=== PATIENT | male | born 1940 | race Caucasian/White ===

== ENCOUNTER 2018-12-15 15:20 | Inpatient (IN) | payer OTHER, BC, MEDICAID ==
--- NOTE | 2018-12-15 15:16 | EDPHY ---
H & P Time Seen by Provider: 12/15/18 15:20 Constitutional: Initial Vital Signs Temperature (C) 36.7 C 12/15/18 15:25 Heart Rate 63 12/15/18 15:25 Respiratory Rate 16 12/15/18 15:25 Blood Pressure 122/72 H 12/15/18 15:25 O2 Sat (%) 97 12/15/18 15:25 O2 Delivery Mode Nasal Cannula O2 (L/minute) 3 Allergies/Adverse Reactions: No Known Allergies Allergy (Unverified 02/01/10 18:16) Home Medications: Medication Instructions Recorded Aspirin 81mg 02/01/10 Xanax 02/01/10 Zocor 02/01/10 Medical Decision Making - Diagnostics Imaging: I viewed and interpreted images myself ED Course/Re-evaluation: CHIEF COMPLAINT: Fall, right hip injury HISTORY OF PRESENT ILLNESS: The patient is a 78 y/o male with a history of dementia and a right hip replacement arriving via EMS from [facility] with right hip pain secondary to an unwitnessed fall this afternoon. Staff estimates he was not down on the ground for longer than 10 minutes. EMS arrived and found his right leg shortened and rotated. He screamed every time they moved him. No history obtainable from patient due to dementia. EMS did not note any other trauma on their exam. He received 100mcg IV Fentanyl en route. REVIEW OF SYSTEMS: Unobtainable due to dementia. PHYSICAL EXAM: HR, BP, O2 Sat, RR. Temp noted General Appearance: Alert, well hydrated, appropriate, and non-toxic appearing. Head: Atraumatic without scalp tenderness or obvious injury Eyes: Pupils equal, round, reactive to light and accommodation, EOMI, no trauma , no injection. Nose: Atraumatic, no rhinorrhea, clear. Throat: Mucus membranes moist. Neck: Supple. Respiratory: No retractions, no distress, no wheezes, and no accessory muscle use. Lungs are clear to auscultation bilaterally. Cardiovascular: Regular rate and rhythm, no murmurs, rubs, or gallops. Good capillary refill all extremities. Gastrointestinal: Abdomen is soft, nontender, non-distended, no masses, no rebound, no guarding, no peritoneal signs. Musculoskeletal: Right leg shortened and rotated, held in flexion, pain with any ROM. Otherwise normal active ROM of all extremities, atraumatic. Neurological: Alert, disoriented at baseline, and interactive. Nonfocal. Skin: No rashes, good turgor, no nodules on palpation. Past medical history: Dementia Past surgical history: Right hip replacement Family history: Noncontributory Social history: Lives at [facility]. DIAGNOSTICS/PROCEDURES/CRITICAL CARE TIME: Pelvis x-ray: Right periprosthetic hip fracture. DIFFERENTIAL DIAGNOSIS: The differential diagnosis for the patient's trauma included but was not limited to intracranial injury, long bone and pelvic bone fractures, spinal injury, intra-abdominal injury, and intra-thoracic injury. MEDICAL DECISION MAKING: This is a 78 y/o male with dementia who presents with right hip pain secondary to an unwitnessed fall this afternoon. His right leg is shortened and rotated and his hip is held in flexion. Any movement of this leg causes pain. Exam is otherwise atraumatic and he is neurovascularly intact. Concern for hip fracture vs. dislocation. Plan for pelvis x-ray and pain management as needed. 1622: I reviewed patient's pelvic x-ray which reveals a mac-prosthetic hip fracture. 1425: I consulted with the hospitalist service, Dr. Aburto accepts admission of this patient. I will consult with ortho regarding this patient. Pre-op labs ordered; 1L IV NS administered. 1649: I consulted with Dr. Hanna, orthopedic surgeon, regarding this patient and his imaging findings. Dr. Hanna agrees to consult on this patient during his admission. - Data Points Laboratory Results: Laboratory Results 12/15/18 15:45 12/15/18 12/15/18 12/15/18 15:45 15:45 15:45 WBC 8.39 10^3/uL 10^3/uL (3.80-9.50) RBC 4.92 10^6/uL 10^6/uL (4.40-6.38) Hgb 15.5 g/dL g/dL (13.7-17.5) Hct 47.2 % % (40.0-51.0) MCV 95.9 fL fL (81.5-99.8) MCH 31.5 pg pg (27.9-34.1) MCHC 32.8 g/dL g/dL (32.4-36.7) RDW 13.9 % % (11.5-15.2) Plt Count 201 10^3/uL 10^3/uL (150-400) MPV 10.0 fL fL (8.7-11.7) Neut % (Auto) 56.9 % % (39.3-74.2) Lymph % (Auto) 33.1 % % (15.0-45.0) [place] % (Auto) 6.4 % % (4.5-13.0) Eos % (Auto) 2.6 % % (0.6-7.6) Baso % (Auto) 0.8 % % (0.3-1.7) Nucleat RBC Rel Count 0.0 % % (0.0-0.2) Absolute Neuts (auto) 4.76 10^3/uL 10^3/uL (1.70-6.50) Absolute Lymphs (auto) 2.78 10^3/uL 10^3/uL (1.00-3.00) Absolute Monos (auto) 0.54 10^3/uL 10^3/uL (0.30-0.80) Absolute Eos (auto) 0.22 10^3/uL 10^3/uL (0.03-0.40) Absolute Basos (auto) 0.07 10^3/uL 10^3/uL (0.02-0.10) Absolute Nucleated RBC 0.00 10^3/uL 10^3/uL (0-0.01) Immature Gran % 0.2 % % (0.0-1.1) Immature Gran # 0.02 10^3/uL 10^3/uL (0.00-0.10) PT 14.6 SEC SEC (12.0-15.0) INR 1.12 (0.83-1.16) APTT 26.6 SEC SEC (23.0-38.0) Sodium Pending Potassium Pending Chloride Pending Carbon Dioxide Pending Anion Gap Pending BUN Pending Creatinine Pending Estimated GFR Pending Glucose Pending Calcium Pending Departure - Departure Disposition: [facility] Inpatient Acute Clinical Impression: Mac-prosthetic femoral shaft fracture Condition: Fair Report Scribed for: Niok Coreas Report Scribed by: Orly Multani Date of Report: 12/15/18 Time of Report: 15:27
[2018-12-15] MEDS ORDERED: NS 1,000 ML IV ONE (16:27)
[2018-12-15 16:34] LABS: PLATELET COUNT 201 10^3/uL (150-400)
[2018-12-15 16:43] LABS: INR 1.12 (0.83-1.16); PROTIME(PATIENT) 14.6 SEC (12.0-15.0)
[2018-12-15] MEDS ORDERED: ACETAMINOPHEN 325 MG TAB PO PRN (17:14)
[2018-12-15] MEDS ORDERED: oxyCODONE IR 5 MG TAB PO PRN (17:14)
[2018-12-15] MEDS ORDERED: ONDANSETRON 4 MG/2 ML VIAL IVP PRN (17:14)
[2018-12-15] MEDS ORDERED: PROMETHAZINE HCL 25 MG/ML INJ IVP PRN (17:14)
[2018-12-15] MEDS ORDERED: ONDANSETRON DISINTEGRATING 4 MG TAB PO PRN (17:14)
[2018-12-15] MEDS ORDERED: BISACODYL 10 MG SUPP PR PRN (17:18)
[2018-12-15] MEDS: HYDROmorphONE/DILAUDID 1 MG/ML INJ IVP PRN (18:18)
[2018-12-15] MEDS: NS 1,000 ML IV SCH (18:19)
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
[2018-12-15] MEDS: traZODone 50 MG TAB PO SCH (21:06)
[2018-12-15] MEDS: guaiFENesin 600 MG TAB.ER PO SCH (21:06)
--- NOTE | 2018-12-15 22:32 | GCON ---
[f rep st] CONSULTATION ORTHOPEDIC ER CONSULT CHIEF COMPLAINT: Right hip pain. DIAGNOSIS: Unstable periprosthetic right hip fracture. HISTORY OF PRESENT ILLNESS: The patient is a 78-year-old male with advanced dementia. Lives at [facility]. Former resident of [place], [place]. His family lives here in [place]. He had a right total hi p replacement, press-fit by Dr. Loyd Kimble about 8 years ago. He had a mechanical fall this mor shelby and was brought to the emergency room. His and daughters are at the bedside. His family r eports that he walks with a cane. He is fairly active. No significant heart or lung troubles. Please see details of ER H and P and admitting H and P. PHYSICAL EXAMINATION: PERTINENT ORTHOPEDIC: Reveals a short, externally rotated right lower extremi ty. He has intact tib ant, gastrocsoleus, EHL, FHL. Good sensation throughout his right foot. Left hip is nontender. ABDOMEN: Soft. BILATERAL UPPER EXTREMITIES: Without pain. DATA: X-rays of the right hip reveal an uncemented press-fit prosthesis total hip. The lesser troch anter is off, and there is some hinging of the lateral cortex. The fracture does extend almost to th e tip of the prosthesis. IMPRESSION/RECOMMENDATION: Likely unstable periprosthetic right hip fracture. I will discuss films and the case with our total joint surgeons in my practice. I did relay this information to the fernanda y. Plan for revision right total hip replacement and open reduction, internal fixation. /[id number]/MODL
[2018-12-16] MEDS: HYDROCODONE/APAP 5/325 TAB PO PRN ×2 (04:45→09:25)
[2018-12-16] MEDS: HYDROmorphONE/DILAUDID 1 MG/ML INJ IVP PRN ×3 (04:45→10:14)
[2018-12-16] MEDS: NS 1,000 ML IV SCH (04:46)
[2018-12-16 05:32] LABS: PLATELET COUNT 142 10^3/uL (150-400)
[2018-12-16] MEDS ORDERED: TRANEXAMIC ACID 1,000 MG in NS 100 ML IV ONE (08:02)
[2018-12-16] MEDS ORDERED: ceFAZolin 2 GM/DEXTROSE 100 ML IV ONE (08:02)
[2018-12-16] MEDS ORDERED: POVIDONE-IODINE 20 ML in SODIUM CL IRRIG SOLUTION 500 ML IRR ONE (08:02)
[2018-12-16] MEDS ORDERED: DEXAMETHASONE 4 MG/ML VIAL IVP ONE (08:02)
[2018-12-16] MEDS ORDERED: ROPIVACAINE 0.2% 80 MG, EPINEPHrine 0.2 MG, KETOROLAC TROMETHAMINE 30 MG in SYRINGE 0 ML IU ONE (08:02)
[2018-12-16] MEDS ORDERED: FAMOTIDINE 20 MG TAB PO ONE (08:02)
--- NOTE | 2018-12-16 08:30 | HOSPPROG ---
Hospitalist Progress Note Assessment/Plan: 78 yo M with PMH of advanced dementia and frequent falls presenting with an unwitnessed fall and periprosthetic hip fracture. First encounter, chart reviewed. * right acute periprosthetic hip fracture -OR today *frequent fall -EKG shows sinus rhythm *dementia -advanced, non verbal at baseline (except today he asked me what the plan was) -per family is calm and cooperative *hyperglycemia -stress induced *plan: continue NPO, OR today Subjective: Andrea told me he isn't having pain, knew he hurt his hip. Objective: Vital Signs Temp Pulse Resp BP Pulse Ox 36.9 C 76 16 104/61 96 12/15/18 23:49 12/15/18 23:49 12/15/18 23:49 12/15/18 23:49 12/15/18 23:49 Laboratory Results 12/16/18 04:20 12/16/18 04:20 12/15/18 12/16/18 12/17/18 05:59 05:59 05:59 Intake Total 1400 Balance 1400 PT 14.6 SEC (12.0-15.0) 12/15/18 15:45 INR 1.12 (0.83-1.16) 12/15/18 15:45 - Physical Exam Constitutional: no apparent distress, appears nourished Eyes: PERRL Ears, Nose, Mouth, Throat: hearing normal Cardiovascular: regular rate and rhythym, no murmur, rub, or gallop Respiratory: no respiratory distress Skin: warm Musculoskeletal: other (right leg shortened and ext rotated) Psychiatric: other (alert, answers some of my questions, calm) ICD10 Worksheet Patient Problems: Problems Problem Status Onset Jacqueline-prosthetic femoral shaft fracture Acute
[2018-12-16] MEDS ORDERED: CETIRIZINE 10 MG TAB PO PRN (09:00)
--- NOTE | 2018-12-16 09:20 | CPEKG ---
Test Reason : OPEN Blood Pressure : / mmHG Vent. Rate : 069 BPM Atrial Rate : 070 BPM P-R Int : 210 ms QRS Dur : 094 ms QT Int : 399 ms P-R-T Axes : 057 -28 031 degrees QTc Int : 428 ms Sinus rhythm Abnormal R-wave progression, early transition Confirmed by Aayush Platt ([id number]) on 12/16/2018 9:20:01 AM Referred By: Mireya Aburto Confirmed By:Aayush Platt
[2018-12-16] MEDS: guaiFENesin 600 MG TAB.ER PO SCH ×2 (09:25→21:10)
[2018-12-16] MEDS: ESCITALOPRAM OXALATE 10 MG TAB PO SCH (09:26)
--- NOTE | 2018-12-16 09:43 | PDMN ---
Medical Necessity Medical necessity: Pt meets IP criteria as of 12/15/2018 per MD and TATA PACK- ( Musculoskeletal Disease); est los > 2mn for ongoing tx and management of periprosthetic hip fracture s/p mechanical fall requiring surgical intervention.
[2018-12-16] MEDS ORDERED: LR 1,000 ML IV ONE (11:42)
[2018-12-16] MEDS ORDERED: DEXAMETHASONE 4 MG/ML VIAL ONE ×2 (11:46→13:46)
[2018-12-16] MEDS ORDERED: CEFAZOLIN 2 GM/DEXTROSE/100 ML BAG IV ONE (11:46)
[2018-12-16] MEDS ORDERED: FAMOTIDINE 20 MG TAB ONE (11:46)
[2018-12-16] MEDS ORDERED: ceFAZolin 1 GM/5 ML SYR ONE (11:57)
--- NOTE | 2018-12-16 12:17 | SOAPPROG ---
SOAP Progress Note Assessment/Plan: a/p 78 yo male with right hip periprosthetic fracture, scheduled for revision right total hip by dr. leonard and dr. Perkins for wednesday12/16/18 -npo from midnight -consider flexeril post op for spasms? -restrictions post op per Quynh/Maddie Subjective: family at bedside in pre op Andrea reports no issues over night, pain off/on, was better controlled since morning, denies cp/sob/f/c/n/v, denies numbness/tingling. ready for surgery Objective: RLE: no hip rom assessed, full ankle rom w/o pain, grossly nvid pt/dp2+ Vital Signs Temp Pulse Resp BP Pulse Ox 37 C 60 14 113/61 98 12/16/18 12:06 12/16/18 12:06 12/16/18 12:06 12/16/18 12:06 12/16/18 12:06 Laboratory Results 12/16/18 04:20 12/16/18 04:20 12/15/18 12/16/18 12/17/18 05:59 05:59 05:59 Intake Total 1400 Balance 1400 PT 14.6 SEC (12.0-15.0) 12/15/18 15:45 INR 1.12 (0.83-1.16) 12/15/18 15:45 - Pending Discharge Pending Discharge Within 24 Hours: No ICD10 Worksheet Patient Problems: Problems Problem Status Onset Jacqueline-prosthetic femoral shaft fracture Acute
[2018-12-16] MEDS ORDERED: fentaNYL 100 MCG/2 ML INJ ONE ×2 (12:21→12:54)
[2018-12-16] MEDS ORDERED: PROPOFOL 200 MG/20 ML VIAL ONE (12:21)
[2018-12-16] MEDS ORDERED: DEXMEDETOMIDINE HCL 400 MCG in NS 100 ML IV ONE (12:30)
[2018-12-16] MEDS ORDERED: BUPIVACAINE/EPI 0.5% 30 ML SDV ONE (12:31)
--- NOTE | 2018-12-16 12:31 | PDANEPAE ---
ANE Past Medical History - Cardiovascular History Hx Hypertension: No Hx Arrhythmias: No Hx Chest Pain: No Hx Coronary Artery / Peripheral Vascular Disease: No Hx CHF / Valvular Disease: No Hx Palpitations: No Cardiovascular History Comment: Abdominal aortic aneurysm, diagnosed a few years ago, no surgery offered due to dementia. Family does not know the size - Pulmonary History Hx COPD: No Hx Asthma/Reactive Airway Disease: No Hx Recent Upper Respiratory Infection: No Hx Oxygen in Use at Home: No Hx Sleep Apnea: Yes Sleep Apnea Screening Result - Last Documented: Positive - Neurologic History Hx Cerebrovascular Accident: No Hx Seizures: No Hx Dementia: Yes Neurologic History Comment: Severe dementia - Endocrine History Hx Diabetes: No - Renal History Hx Renal Disorders: No - Liver History Hx Hepatic Disorders: No - Chronic Pain History Chronic Pain: No ANE Review of Systems Review of systems is: negative Review of Systems: - Exercise capacity Exercise capacity: limited by disability, unable to assess ANE Patient History - Allergies Allergies/Adverse Reactions: No Known Allergies Allergy (Unverified 02/01/10 18:16) - Home Medications Home medications: home medication list seen and reviewed Home Medications: Acetaminophen [Tylenol 325mg (*)] 650 mg PO Q6HRS PRN 12/15/18 [Last Taken Unknown] Bisacodyl [Dulcolax] 10 mg [place] DAILY PRN 12/15/18 [Last Taken Unknown] Escitalopram Oxalate [Lexapro] 10 mg PO DAILY 12/15/18 [Last Taken Unknown] Herbals/Supplements -Info Only 1 ea PO DAILY 12/15/18 [Last Taken Unknown] Loperamide HCl [Imodium 2 mg (*)] 2 mg PO PRN PRN 12/15/18 [Last Taken Unknown] Loratadine [Claritin 10 mg] 10 mg PO DAILY PRN 12/15/18 [Last Taken Unknown] Sennosides 8.6 mg PO BID PRN 12/15/18 [Last Taken Unknown] Sennosides/Docusate Sodium [Senokot-S (OTC)] 1 each PO BID PRN 12/15/18 [Last Taken Unknown] guaiFENesin [Mucinex 600 MG (*)] 600 mg PO BID 12/15/18 [Last Taken Unknown] traZODone [traZODONE 50MG (*)] 50 mg PO HS 12/15/18 [Last Taken Unknown] - NPO status NPO Status: no food or drink >8 hours NPO Since - Liquids (Date): 12/15/18 NPO Since - Liquids (Time): 00:00 NPO Since - Solids (Date): 12/15/18 NPO Since - Solids (Time): 19:00 - Smoking Hx Smoking Status: Never smoked - Alcohol Use Alcohol Use: None ANE Labs/Vital Signs - Labs Result Diagrams: 12/16/18 04:20 12/16/18 04:20 - Vital Signs Vital Signs: reviewed preoperatively; see RN documention for details Blood Pressure: 113/61 Heart Rate: 60 Respiratory Rate: 14 O2 Sat (%): 98 Height: 185.42 cm Weight: 91.9 kg ANE Physical Exam - Airway Neck exam: decreased ROM Mallampati Score: Class 4 - Pulmonary Pulmonary: clear to auscultation - Cardiovascular Cardiovascular: regular rate and rhythym - ASA Status ASA Status: IV ANE Anesthesia Plan Anesthesia Plan: general endotracheal anesthesia (Discussed spinal with family and how it would be more advantageous for his dementia, but they were extremely concerned about his ability to cooperate, therefore preferred GA. Also the patient and family would like to keep his DNR status throughout the operation.)
--- NOTE | 2018-12-16 12:41 | ASMTCMCOM ---
CM Note CM Note Notes: Pt lives at the memory care unit at [facility]. He was admitted for a hip fracture after an unwitnessed fall. He is supported by his and dtr. Pt will go to OR today, therapy evals pending, RANDELL w/f. DC Plan: TBD Date Signed: 12/16/2018 12:41 PM Electronically Signed By:Francesca Taylor RN
[2018-12-16] MEDS ORDERED: HYDROmorphONE/DILAUDID 2 MG/ML INJ ONE (12:54)
[2018-12-16] MEDS ORDERED: ROCURONIUM 50 MG/5 ML VIAL ONE ×2 (13:39)
[2018-12-16] MEDS ORDERED: GLYCOPYRROLATE 0.2 MG/1 ML VIAL ONE (13:47)
[2018-12-16] MEDS ORDERED: *IRR*TRANEXAMIC ACID 3,000 MG/NS 50 ML IRR ONE (14:30)
[2018-12-16] MEDS ORDERED: PHENYLEPHRINE HCL 100 MCG/ML SYR ONE (14:34)
[2018-12-16] MEDS ORDERED: ePHEDrine SULFATE 25 MG/5 ML SYR ONE (14:34)
[2018-12-16] MEDS ORDERED: PHENYLEPHRINE 10 MG/ML SDV ONE (14:35)
[2018-12-16] MEDS ORDERED: LACTULOSE 20 GM/30 ML UDCUP PO PRN (17:20)
[2018-12-16] MEDS ORDERED: DIPHENOXYLATE/ATROPINE LOMOTIL 1 TAB PO PRN (17:20)
[2018-12-16] MEDS ORDERED: POLYETHYLENE GLYCOL 3350 17 GM PKT PO PRN (17:20)
[2018-12-16] MEDS ORDERED: CYCLOBENZAPRINE 10 MG TAB PO PRN (17:20)
[2018-12-16] MEDS ORDERED: MAGNESIUM HYDROXIDE 30 ML UDCUP PO PRN (17:20)
[2018-12-16] MEDS ORDERED: ONDANSETRON 4 MG/2 ML VIAL ONE (17:20)
[2018-12-16] MEDS ORDERED: TEMAZEPAM 15 MG CAP PO PRN (17:20)
--- NOTE | 2018-12-16 17:33 | POSTOPPROG ---
Post Op Note Date of Operation: 12/16/18 Surgeon: Franky Beauchamp Qa Reviewer: Co-Surgeon MD Maddie, Qa Reviewer Cheli CAMILO Anesthesiologist: Noni SAMPSON Anesthesia: GET(General Endotracheal) Pre-op Diagnosis: L hip periprosthetic fracture Post-op Diagnosis: same - Nathalie B2 Procedure: L hip ORIF and revision BERT Inf/Abcess present in the surg proc area at time of surgery?: No EBL: 500-1000 (1000)
[2018-12-16] MEDS ORDERED: PHENYLEPHRINE HCL 100 MCG/ML SYR IVP PRN (18:05)
[2018-12-16] MEDS ORDERED: ALBUTEROL 3 ML DEYVIAL IH PRN (18:05)
[2018-12-16] MEDS ORDERED: DEXAMETHASONE 4 MG/ML VIAL IVP PRN (18:05)
[2018-12-16] MEDS ORDERED: PROMETHAZINE HCL 25 MG/ML INJ IVP PRN (18:05)
[2018-12-16] MEDS ORDERED: LR 500 ML IV PRN (18:05)
[2018-12-16] MEDS ORDERED: ONDANSETRON 4 MG/2 ML VIAL IVP PRN (18:05)
[2018-12-16] MEDS ORDERED: fentaNYL 100 MCG/2 ML INJ IVP PRN (18:05)
[2018-12-16] MEDS ORDERED: MEPERIDINE 25 MG/0.5 ML AMP IVP PRN (18:05)
[2018-12-16] MEDS ORDERED: oxyCODONE IR 5 MG TAB PO PRN (18:05)
[2018-12-16] MEDS ORDERED: NALOXONE HCL 0.4 MG/ML INJ IVP PRN (18:05)
[2018-12-16] MEDS: LR 1,000 ML IV SCH ×2 (19:44→19:47)
[2018-12-16] MEDS: ceFAZolin 2 GM/DEXTROSE 100 ML IV SCH (21:10)
[2018-12-16] MEDS: traZODone 50 MG TAB PO SCH (21:10)
[2018-12-16] MEDS: FAMOTIDINE 20 MG TAB PO SCH (21:10)
[2018-12-17] MEDS: HYDROCODONE/APAP 5/325 TAB PO PRN ×3 (02:04→11:02)
[2018-12-17] MEDS: ceFAZolin 2 GM/DEXTROSE 100 ML IV SCH (04:49)
--- NOTE | 2018-12-17 07:52 | POSTANESTH ---
Post Anesthetic Evaluation Cardiovascular Status: Normal, Stable (HCT 28 post op) Respiratory Status: Normal, Stable, Tx Decrease in SpO2 (mild decrease SaO2 secondary to long surgical case) Level of Consciousness/Mental Status: Mildly Sleepy, Arousable (demetia stable, but non-verbal) Pain Control: Adequate, Prn Tx Ordered Nausea/Vomiting Control: Adequate, Prn Tx Ordered Complications Possibly Related to Anesthesia: None Noted
--- NOTE | 2018-12-17 09:00 | HOSPPROG ---
Hospitalist Progress Note Assessment/Plan: 78 yo M with PMH of advanced dementia and frequent falls presenting with an unwitnessed fall and periprosthetic hip fracture. * right acute periprosthetic hip fracture -s/p ORIF and revision *anemia -acute blood loss from the above *leukocytosis -stress induced *frequent fall -EKG shows sinus rhythm *dementia -advanced, -per family is calm and cooperative *hyperglycemia -stress induced *plan: continue care as above, will place him on scheduled tylenol since his dementia is bad enough that he won't know to ask for medications. Subjective: Andrea is in the chair, smiling, says he has no pain, until I touch his hip. Objective: Vital Signs Temp Pulse Resp BP Pulse Ox 36.8 C 69 14 109/53 L 93 12/17/18 07:31 12/17/18 07:31 12/17/18 07:31 12/17/18 07:31 12/17/18 07:31 Laboratory Results 12/16/18 22:56 12/17/18 06:46 12/16/18 12/17/18 12/18/18 05:59 05:59 05:59 Intake Total 1400 7440 Output Total 2250 Balance 1400 5190 PT 14.6 SEC (12.0-15.0) 12/15/18 15:45 INR 1.12 (0.83-1.16) 12/15/18 15:45 - Physical Exam Constitutional: appears nourished, uncomfortable Eyes: PERRL Ears, Nose, Mouth, Throat: hearing normal Cardiovascular: regular rate and rhythym Respiratory: no respiratory distress Skin: warm, other (swelling in his r hip, r upper thigh area), No normal color ( pale) Musculoskeletal: generalized weakness Psychiatric: interacting appropriately, flat affect, poor insight, poor judgement, poor memory ICD10 Worksheet Patient Problems: Problems Problem Status Onset Jacqueline-prosthetic femoral shaft fracture Acute
[2018-12-17] MEDS: ENOXAPARIN 40 MG/0.4 ML SYR SC SCH (09:44)
[2018-12-17] MEDS: guaiFENesin 600 MG TAB.ER PO SCH ×2 (09:44→21:18)
[2018-12-17] MEDS: FAMOTIDINE 20 MG TAB PO SCH ×2 (09:45→21:19)
[2018-12-17] MEDS: ESCITALOPRAM OXALATE 10 MG TAB PO SCH (09:45)
[2018-12-17] MEDS: SENNOSIDES 1 TAB PO PRN (11:04)
[2018-12-17] MEDS ORDERED: NS 250 ML IV ONE (11:30)
--- NOTE | 2018-12-17 14:20 | ASMTCMCOM ---
CM Note CM Note Notes: Reviewed chart, spoke with Merary Taylor NP regarding discharge plan of care, pt's progress. Per Merary, pt will require SNF rehab upon discharge. Call placed to [facility] (); spoke with Matthew, update provided. Per Matthew, will run insurance benefits to begin authorization process. Therapy evals and progress notes faxed via [employer]; confirmed receipt with Matthew. will continue to follow. Discharge Plan: [facility] Date Signed: 12/17/2018 02:20 PM Electronically Signed By:Abiola Srinivasan RN
[2018-12-17] MEDS: ACETAMINOPHEN 500 MG TAB PO SCH ×2 (15:00→21:19)
--- NOTE | 2018-12-17 15:56 | SOAPPROG ---
SOAP Progress Note Assessment/Plan: Assessment: Postop day 1 status post right femur open reduction internal fixation and revision total hip arthroplasty Plan: 50% weight-bearing with assistance, PT/OT Posterior hip precautions Acute blood-loss anemia with vasovagal episode today - good response to repositioning and IV fluids. Will continue to trend CBC and transfuse accordingly Current pain management regimen seems to be working well. DVT prophylaxis: SCDs, Mohan hospaco, Lovenox 40 mg daily Disposition: Pending 12/17/18 15:52 Subjective: Patient is awake and verbal. Confused - he thought I was his son. In no acute distress. Objective: Vital Signs Temp Pulse Resp BP Pulse Ox 36.6 C 69 14 112/59 L 98 12/17/18 12:00 12/17/18 12:00 12/17/18 12:00 12/17/18 12:00 12/17/18 12:00 Laboratory Results 12/17/18 12:32 12/17/18 06:46 12/16/18 12/17/18 12/18/18 05:59 05:59 05:59 Intake Total 1400 7440 Output Total 2250 Balance 1400 5190 PT 14.6 SEC (12.0-15.0) 12/15/18 15:45 INR 1.12 (0.83-1.16) 12/15/18 15:45 Awake alert, not oriented to place or time which is baseline Easy nonlabored breathing Right thigh: Generalized edema throughout the right lower extremity Dressing clean dry intact no erythema drainage or signs of infection No significant ecchymosis Thigh and calf compartments soft compressible No calf pain Motor intact to EHL FHL tibialis anterior gastrocsoleus Palpable DP PT pulses - Time Spent With Patient Time Spent With Patient: 10 ICD10 Worksheet Patient Problems: Problems Problem Status Onset Jacqueline-prosthetic femoral shaft fracture Acute
[2018-12-17] MEDS: oxyCODONE IR 5 MG TAB PO PRN (16:06)
[2018-12-17] MEDS: traZODone 50 MG TAB PO SCH (21:19)
[2018-12-18] MEDS: ACETAMINOPHEN 500 MG TAB PO SCH ×3 (06:28→22:17)
[2018-12-18] MEDS: oxyCODONE IR 5 MG TAB PO PRN ×3 (08:23→20:46)
[2018-12-18] MEDS: FAMOTIDINE 20 MG TAB PO SCH ×2 (09:32→20:45)
[2018-12-18] MEDS: guaiFENesin 600 MG TAB.ER PO SCH ×2 (09:32→20:46)
[2018-12-18] MEDS: ENOXAPARIN 40 MG/0.4 ML SYR SC SCH (09:32)
[2018-12-18] MEDS: ESCITALOPRAM OXALATE 10 MG TAB PO SCH (09:32)
--- NOTE | 2018-12-18 11:19 | HOSPPROG ---
Hospitalist Progress Note Assessment/Plan: 78 yo M with PMH of advanced dementia and frequent falls presenting with an unwitnessed fall and periprosthetic hip fracture. * right acute periprosthetic hip fracture -s/p ORIF and revision -on scheduled Tylenol for pain *anemia -acute blood loss from the above -hgb and hct pending *vasovagal event w hypotension -occurred yesterday/ none further *leukocytosis -stress induced *frequent fall -EKG shows sinus rhythm *dementia -advance -per family is calm and cooperative *hyperglycemia -stress induced *plan: f/u with hgb and hct. Likely to dc tomorrow. Subjective: Andrea is not c/o pain, wants to go back to bed Objective: Vital Signs Temp Pulse Resp BP Pulse Ox 36.1 C 75 14 105/54 L 90 L 12/18/18 08:00 12/18/18 08:00 12/18/18 08:00 12/18/18 08:00 12/18/18 08:00 Laboratory Results 12/17/18 12:32 12/17/18 06:46 12/17/18 12/18/18 12/19/18 05:59 05:59 05:59 Intake Total 7440 750 Output Total 2250 Balance 5190 750 PT 14.6 SEC (12.0-15.0) 12/15/18 15:45 INR 1.12 (0.83-1.16) 12/15/18 15:45 - Physical Exam Constitutional: no apparent distress, appears nourished, uncomfortable Eyes: PERRL Ears, Nose, Mouth, Throat: hearing normal Cardiovascular: regular rate and rhythym Respiratory: no respiratory distress Skin: warm, other (right hip, thigh w swelling) Musculoskeletal: generalized weakness Psychiatric: poor insight, poor judgement, poor memory, other (alert and oriented to himself only) ICD10 Worksheet Patient Problems: Problems Problem Status Onset Jacqueline-prosthetic femoral shaft fracture Acute
[2018-12-18] MEDS ORDERED: ACETAMINOPHEN 325 MG TAB PO ONE (13:42)
[2018-12-18] MEDS: traZODone 50 MG TAB PO SCH (20:46)
[2018-12-18] MEDS: SENNOSIDES 1 TAB PO PRN (20:46)
[2018-12-19] MEDS: ACETAMINOPHEN 500 MG TAB PO SCH ×3 (06:16→22:00)
[2018-12-19] MEDS: oxyCODONE IR 5 MG TAB PO PRN (10:07)
--- NOTE | 2018-12-19 10:09 | SOAPPROG ---
SOAP Progress Note Assessment/Plan: Assessment: Postop day 3 status post right femur open reduction internal fixation and revision total hip arthroplasty Plan: 50% weight-bearing with assistance, PT/OT Posterior hip precautions Acute blood-loss anemia with vasovagal episode today - good response to repositioning and IV fluids. Received 1 unit of packed red blood cells yesterday evening. H&H still down this morning. Recommend additional unit of transfusion. Will continue to trend CBC and transfuse accordingly Current pain management regimen seems to be working well. DVT prophylaxis: SCDs, Mohan mills, Lovenox 40 mg daily Analgesia: Patient having difficulty with pain management morning. Possible his mental status does not allow him to effectively convey when he is beginning to have pain. Consider scheduled p.o. Narcotics Disposition: Pending 12/17/18 15:52 12/19/18 10:07 Subjective: No acute events. Patient in moderate pain this morning. Objective: Vital Signs Temp Pulse Resp BP Pulse Ox 37.3 C 83 18 136/73 H 94 12/19/18 07:25 12/19/18 07:25 12/19/18 07:25 12/19/18 07:25 12/19/18 07:25 Laboratory Results 12/19/18 04:12 12/18/18 11:45 12/18/18 12/19/18 12/20/18 05:59 05:59 05:59 Intake Total 750 750 500 Balance 750 750 500 PT 14.6 SEC (12.0-15.0) 12/15/18 15:45 INR 1.12 (0.83-1.16) 12/15/18 15:45 Awake alert, not oriented to place or time which is baseline Easy nonlabored breathing Right thigh: Generalized edema throughout the right lower extremity Dressing clean dry intact no erythema drainage or signs of infection No significant ecchymosis Thigh and calf compartments soft compressible No calf pain Motor intact to EHL FHL tibialis anterior gastrocsoleus Palpable DP PT pulses ICD10 Worksheet Patient Problems: Problems Problem Status Onset Jacqueline-prosthetic femoral shaft fracture Acute
[2018-12-19] MEDS: guaiFENesin 600 MG TAB.ER PO SCH ×2 (10:15→22:00)
[2018-12-19] MEDS: FAMOTIDINE 20 MG TAB PO SCH ×2 (10:15→22:00)
[2018-12-19] MEDS: ESCITALOPRAM OXALATE 10 MG TAB PO SCH (10:15)
[2018-12-19] MEDS: ENOXAPARIN 40 MG/0.4 ML SYR SC SCH (10:16)
[2018-12-19] MEDS ORDERED: oxyCODONE IR 5 MG TAB PO PRN (10:37)
[2018-12-19] MEDS ORDERED: oxyCODONE IR 5 MG TAB PO SCH (12:00)
[2018-12-19] MEDS: oxyCODONE IR 5 MG TAB PO SCH ×3 (12:55→23:39)
--- NOTE | 2018-12-19 15:22 | ASMTCMCOM ---
CM Note CM Note Notes: Pt has original/standard Medicare so no insurance auth is needed for pt to return to [facility] with SNF benefit. Pt PASRR completed, non-triggering. Pt dghtr/MDPOA was able to assist with answering the PASRR medication question. D/c plan of care: [facility] Date Signed: 12/19/2018 03:21 PM Electronically Signed By:FAHAD Cool
--- NOTE | 2018-12-19 15:24 | HOSPPROG ---
Hospitalist Progress Note Assessment/Plan: 78 yo M with PMH of advanced dementia and frequent falls presenting with an unwitnessed fall and periprosthetic hip fracture. First encounter, chart reviewed. * right acute periprosthetic hip fracture -s/p ORIF and revision POD #3 -on scheduled Tylenol for pain *Pain -severe -will schedule pain meds -spasm *anemia -acute blood loss from the above -hgb and hct low -transfuse -no active signs of bleeding *vasovagal event w hypotension -none further *leukocytosis -stress induced *frequent fall -EKG shows sinus rhythm *dementia -advance -per family is calm and cooperative *hyperglycemia -stress induced *plan: f/u with hgb and hct. transfuse change pain meds will need SNF Subjective: C/O pain. Confused. Objective: Vital Signs Temp Pulse Resp BP Pulse Ox 37.3 C 88 18 108/53 L 90 L 12/19/18 11:45 12/19/18 11:45 12/19/18 11:45 12/19/18 11:45 12/19/18 11:45 Laboratory Results 12/19/18 04:12 12/18/18 11:45 12/18/18 12/19/18 12/20/18 05:59 05:59 05:59 Intake Total 750 750 500 Output Total 1 Balance 750 750 499 PT 14.6 SEC (12.0-15.0) 12/15/18 15:45 INR 1.12 (0.83-1.16) 12/15/18 15:45 - Physical Exam Constitutional: appears nourished, chronically ill appearing, uncomfortable Eyes: PERRL, anicteric sclera, EOMI Ears, Nose, Mouth, Throat: moist mucous membranes, hearing normal, ears appear normal Cardiovascular: edema, No JVD, No tachycardia Respiratory: no respiratory distress, no rales or rhonchi, reduced air movement Gastrointestinal: normoactive bowel sounds, No tenderness, No ascites Skin: warm, normal color, No mottled Musculoskeletal: joint tenderness, pain with ROM, generalized weakness Neurologic: No AAOx3 Psychiatric: not anxious, poor insight, poor judgement, poor memory ICD10 Worksheet Patient Problems: Problems Problem Status Onset Jacqueline-prosthetic femoral shaft fracture Acute
[2018-12-19] MEDS: METHOCARBAMOL 750 MG TAB PO SCH ×2 (16:51→22:00)
[2018-12-19] MEDS: traZODone 50 MG TAB PO SCH (22:01)
[2018-12-20] MEDS: ACETAMINOPHEN 500 MG TAB PO SCH ×3 (06:07→23:52)
[2018-12-20] MEDS: oxyCODONE IR 5 MG TAB PO SCH ×4 (06:10→23:51)
--- NOTE | 2018-12-20 07:42 | SOAPPROG ---
SOAP Progress Note Assessment/Plan: Assessment: Postop day 4 status post right femur open reduction internal fixation and revision total hip arthroplasty Plan: 50% weight-bearing with assistance, PT/OT Posterior hip precautions Acute blood-loss anemia with 1 episode of vasovagal episode. Has Received 2 units of packed red blood cells with appropriate H&H response this morning. DVT prophylaxis: SCDs, Mohan hose, Lovenox 40 mg daily Analgesia: Patient having difficulty with pain management morning. Possible his mental status does not allow him to effectively convey when he is beginning to have pain. Consider scheduled p.o. Narcotics Disposition: Pending 12/17/18 15:52 12/19/18 10:07 12/20/18 07:40 Subjective: No acute events. sleeping comfortably. Easily arousable. Baseline dementia and confusion Objective: Vital Signs Temp Pulse Resp BP Pulse Ox 36.5 C 61 17 121/69 H 98 12/20/18 04:00 12/20/18 04:00 12/20/18 04:00 12/20/18 04:00 12/20/18 04:00 Laboratory Results 12/20/18 04:22 12/18/18 11:45 12/19/18 12/20/18 12/21/18 05:59 05:59 05:59 Intake Total 750 1440 500 Output Total 401 450 Balance 750 1039 50 PT 14.6 SEC (12.0-15.0) 12/15/18 15:45 INR 1.12 (0.83-1.16) 12/15/18 15:45 Awake alert, not oriented to place or time which is baseline Easy nonlabored breathing Right thigh: Generalized edema throughout the right lower extremity Dressing clean dry intact no erythema drainage or signs of infection No significant ecchymosis Thigh and calf compartments soft compressible No calf pain Motor intact to EHL FHL tibialis anterior gastrocsoleus Palpable DP PT pulses ICD10 Worksheet Patient Problems: Problems Problem Status Onset Jacqueline-prosthetic femoral shaft fracture Acute
[2018-12-20] MEDS: FAMOTIDINE 20 MG TAB PO SCH ×2 (09:38→20:37)
[2018-12-20] MEDS: guaiFENesin 600 MG TAB.ER PO SCH ×2 (09:38→20:37)
[2018-12-20] MEDS: ESCITALOPRAM OXALATE 10 MG TAB PO SCH (09:38)
[2018-12-20] MEDS: METHOCARBAMOL 750 MG TAB PO SCH ×3 (09:39→20:37)
[2018-12-20] MEDS: ENOXAPARIN 40 MG/0.4 ML SYR SC SCH (09:39)
--- NOTE | 2018-12-20 13:49 | HOSPPROG ---
Hospitalist Progress Note Assessment/Plan: 78 yo M with PMH of advanced dementia and frequent falls presenting with an unwitnessed fall and periprosthetic hip fracture. * right acute periprosthetic hip fracture -s/p ORIF and revision POD #4 -on scheduled oxy for pain *Pain -better today on scheduled meds -spasm *anemia -acute blood loss from the above -hgb and hct stable -transfused yesterday -no active signs of bleeding -recheck in m *vasovagal event w hypotension -none further *leukocytosis -stress induced *frequent fall -EKG shows sinus rhythm *dementia -advance -per family is calm and cooperative *hyperglycemia -stress induced *plan: f/u with hgb and hct. continue scheduled pain meds will need SNF Subjective: Up in the chair. Feeling better today. Pain controlled. Objective: Vital Signs Temp Pulse Resp BP Pulse Ox 36.2 C 64 14 119/62 98 12/20/18 07:58 12/20/18 07:58 12/20/18 07:58 12/20/18 07:58 12/20/18 07:58 Laboratory Results 12/20/18 04:22 12/18/18 11:45 12/19/18 12/20/18 12/21/18 05:59 05:59 05:59 Intake Total 750 1440 900 Output Total 401 450 Balance 750 1039 450 PT 14.6 SEC (12.0-15.0) 12/15/18 15:45 INR 1.12 (0.83-1.16) 12/15/18 15:45 - Physical Exam Constitutional: appears nourished, chronically ill appearing Eyes: PERRL, anicteric sclera Ears, Nose, Mouth, Throat: moist mucous membranes, hearing normal Cardiovascular: No JVD, No edema Respiratory: no respiratory distress, reduced air movement Gastrointestinal: No tenderness, No ascites Skin: warm, normal color, No mottled Musculoskeletal: joint tenderness, pain with ROM, generalized weakness Neurologic: No AAOx3 Psychiatric: not anxious, poor insight, poor judgement, poor memory ICD10 Worksheet Patient Problems: Problems Problem Status Onset Jacqueline-prosthetic femoral shaft fracture Acute
[2018-12-20] MEDS: traZODone 50 MG TAB PO SCH (20:37)
[2018-12-21] MEDS: ACETAMINOPHEN 500 MG TAB PO SCH (06:21)
[2018-12-21] MEDS: oxyCODONE IR 5 MG TAB PO SCH ×2 (06:24→13:04)
--- NOTE | 2018-12-21 07:00 | SOAPPROG ---
SOAP Progress Note Assessment/Plan: Assessment: Postop day 5 status post right femur open reduction internal fixation and revision total hip arthroplasty Plan: 50% weight-bearing with assistance, PT/OT Posterior hip precautions Acute blood-loss anemia with 1 episode of vasovagal episode. Has Received 2 units of packed red blood cells with appropriate H&H response. 9.4 this AM DVT prophylaxis: SCDs, Mohan hose, Lovenox 40 mg daily x 3-4wks depending on mobility Analgesia: comfortable this AM. On scheduled oxy Disposition: to [facility] today if stable and cleared by hospitalist service 12/17/18 15:52 12/19/18 10:07 12/20/18 07:40 12/21/18 06:58 Subjective: No acute events overnight. Pain well controlled this morning. Objective: Vital Signs Temp Pulse Resp BP Pulse Ox 36.5 C 63 18 125/74 H 97 12/20/18 23:19 12/20/18 23:19 12/20/18 23:19 12/20/18 23:19 12/20/18 23:19 Laboratory Results 12/21/18 04:19 12/18/18 11:45 12/20/18 12/21/18 12/22/18 05:59 05:59 05:59 Intake Total 1440 1500 Output Total 401 1400 Balance 1039 100 PT 14.6 SEC (12.0-15.0) 12/15/18 15:45 INR 1.12 (0.83-1.16) 12/15/18 15:45 Awake alert, not oriented to place or time which is baseline Easy nonlabored breathing Right thigh: Generalized edema throughout the right lower extremity Dressing clean dry intact no erythema drainage or signs of infection No significant ecchymosis Thigh and calf compartments soft compressible No calf pain Motor intact to EHL FHL tibialis anterior gastrocsoleus Palpable DP PT pulses ICD10 Worksheet Patient Problems: Problems Problem Status Onset Jacqueline-prosthetic femoral shaft fracture Acute
[2018-12-21 07:48] VITALS: BP 129/79
--- NOTE | 2018-12-21 09:41 | HOSPPROG ---
Hospitalist Progress Note Assessment/Plan: 78 yo M with PMH of advanced dementia and frequent falls presenting with an unwitnessed fall and periprosthetic hip fracture. * right acute periprosthetic hip fracture -s/p ORIF and revision -on scheduled Tylenol for pain and oxy *anemia -acute blood loss from the above -recieved two units of PRBC's *vasovagal event w hypotension -occurred yesterday/ none further *leukocytosis -stress induced *frequent fall -EKG shows sinus rhythm *dementia -advance -per family is calm and cooperative *hyperglycemia -stress induced *plan:dc to rehab Subjective: Andrea has no complaints. Objective: Vital Signs Temp Pulse Resp BP Pulse Ox 36.6 C 67 18 129/79 H 98 12/21/18 07:45 12/21/18 07:45 12/21/18 07:45 12/21/18 07:45 12/21/18 07:45 Laboratory Results 12/21/18 04:19 12/18/18 11:45 12/20/18 12/21/18 12/22/18 05:59 05:59 05:59 Intake Total 1440 1500 Output Total 401 1400 Balance 1039 100 PT 14.6 SEC (12.0-15.0) 12/15/18 15:45 INR 1.12 (0.83-1.16) 12/15/18 15:45 - Physical Exam Constitutional: no apparent distress, appears nourished, uncomfortable Eyes: PERRL Ears, Nose, Mouth, Throat: hearing normal Cardiovascular: regular rate and rhythym Respiratory: no respiratory distress, reduced air movement Skin: warm, other (r hip area w swelling) Musculoskeletal: generalized weakness Neurologic: other (alert and oriented to himself) Psychiatric: interacting appropriately ICD10 Worksheet Patient Problems: Problems Problem Status Onset Jacqueline-prosthetic femoral shaft fracture Acute
--- NOTE | 2018-12-21 10:11 | PDIAF ---
- Diagnosis Diagnosis: r periprosthetic hip fx s/p ORIF & revision, anemia, dementia Code Status: Do Not Resuscitate - Medication Management Discharge Medications: electronically signed and located in the Home Medication List. - Orders Services needed: Physical Therapy, Occupational Therapy Diet Recommendation: no restrictions on diet Diet Texture: Regular Texture Diet Additional Instructions: 50% PWB to RLE Posterior hip precautions f/u in 2 wks from surgery Maintain dressing - keep c/d/i cont Lovenox x 3 more weeks, longer if not mobile - Labs/Radiology BMP Date: 12/28/18 HCT/HGB Date: 12/28/18 - Follow Up Care Current Providers and Referrals: JUAN RAMON CHAVARRIA [Other] - As per Instructions Franky Beauchamp MD [Medical Doctor] -
--- NOTE | 2018-12-21 10:43 | ASMTLACE ---
GERIE Length of stay for Answers: 7-13 days current admission Acuity / Level of Answers: Yes Care: Did the patient have an inpatient admission? Comorbidities - select Answers: Dementia all that apply Other Notes: Diverticulitis # of Emergency department Answers: 1-2 visits in the last 6 months Social determinants Answers: Mental health diagnosis (anxiety, depression, pers onality disorders, etc.) Score: 16 Date Signed: 12/21/2018 10:43 AM Electronically Signed By:FAHAD Cool
--- NOTE | 2018-12-21 10:46 | ASMTCMCOM ---
CM Note CM Note Notes: Pt medically stable for d/c to [facility] under Medicare SNF benefit. Orders sent in [employer]. RN Khushbu to call report. Ginny with scheduled stretcher transport for 1330. Pt dghtr Hina updated and she will call pt Ann Marie. Date Signed: 12/21/2018 10:45 AM Electronically Signed By:FAHAD Cool
[2018-12-21] MEDS: FAMOTIDINE 20 MG TAB PO SCH (10:47)
[2018-12-21] MEDS: ESCITALOPRAM OXALATE 10 MG TAB PO SCH (10:47)
[2018-12-21] MEDS: METHOCARBAMOL 750 MG TAB PO SCH (10:47)
[2018-12-21] MEDS: guaiFENesin 600 MG TAB.ER PO SCH (10:47)
[2018-12-21] MEDS: ENOXAPARIN 40 MG/0.4 ML SYR SC SCH (10:48)
--- NOTE | 2018-12-21 10:52 | GOP ---
[f rep st] OPERATIVE REPORT DATE OF OPERATION: 12/15/2018 SURGEON: Franky Beauchamp MD MACHINE PRECISION ENGRAVER: Kodak Bower CFA. Sewing Line Baler was required for the procedure due to the complexity of the case, the patient's condition for positioning, prepping, draping, retraction, and closure. ANESTHESIA: General. PREOPERATIVE DIAGNOSIS: Right [place] B2 periprosthetic fracture. POSTOPERATIVE DIAGNOSIS: Right [place] B2 periprosthetic fracture. PROCEDURE PERFORMED: Right femur open reduction and internal fixation as well as revision total hip arthroplasty. Fluoroscopic supervision greater than 1 hour. FINDINGS: SPECIMENS: None. ESTIMATED BLOOD LOSS: 1000 cc. DESCRIPTION OF PROCEDURE: Patient was seen in the holding area. Operative site was signed. The pat ient was then taken to the operating room. After smooth induction general anesthesia, placed in a la teral decubitus position with affected hip facing up using a pegboard and an axillary roll. The affe cted hip was prepped and draped in usual sterile fashion. The operative site was confirmed by signat ure. Time-out performed. Allergies reviewed. Antibiotics and TXA were administered. Longitudinal i ncision was made centered over the posterior aspect of the greater trochanter over the previous utili zed incision. This was carried down through the subcutaneous tissue to identify the fascia linda. Th is was incised in line with the incision. The gluteus hansel was bluntly split. Hemorrhagic trocha nteric bursa was taken down using Bovie electrocautery. Short external rotators and trapezoidal caps ulotomy were taken down in layers from their insertion on the proximal femur and tagged with #2 Fiber Wire. The fracture was immediately encountered. There were significant posterior comminution and po or bone quality. The previous total hip prosthesis was grossly loose and easily removed without extr acting devices by hand. Once the previous implant was removed, comminution and fracture sites became more evident. A long spiral split at the proximal femur propagated distally. Extended incision was necessary to visualize the fracture site and achieve anatomic reduction. Multiple 2 mm Dall-Miles c reilly and sleeves were utilized at the distal aspect to achieve reduction and fixation of the fractur e site. This process was repeated 5 times prior to any broaching of the femoral canal. Once the fix ation of the femur was confirmed, we then began preparation of the femoral canal. The femoral canal was sequentially reamed up to a size 17 mm, 195 mm length distal stem. Trial reamer was visualized u nder fluoroscopy and found to be good width and length. Permanent implant was then impacted into leana ce. Trial columns were then placed on the proximal aspect of the stem after dilating to a 21 mm ream er. A 21 mm trial with a +0 was secured to the proximal stem. We then placed trial head, and trial reduction was performed. After multiple trial combinations and visualization under fluoroscopy the h ip was found to be stable with the above implants. Final implants were then placed. An additional 2 Dall-Miles beaded cables were then placed around the lesser trochanter and greater trochanter to ach ieve fixation of comminution at the proximal aspect of the femur and was found to have excellent secu re fit. Final reduction was performed. The hip was found to be stable. The wound was copiously irr igated with sterile solution and Betadine and pulse lavage. Capsule and external rotators were repai red through 2 drill holes in the greater trochanter. Soft tissue was infiltrated with joint cocktail . The joint was then closed in layers with #2 PDS Quill suture in the fascia linda, 0 PDS Quill on th e deep subcutaneous fat, and 3-0 Versalok in the dermis. Dermabond and sterile dressings were applie d to the hip and he was placed in an abduction pillow. The patient was safely awakened, extubated, t aken to recovery room in stable condition. Critical portions of the procedure performed by myself, Garret Beauchamp, as well as Dr. Luis Perkins. The operative note was created by myself, Dr. Beauchamp. I was imm ediately available for emergency cross-coverage at all times. CO-SURGEON: Luis Perkins MD. INDICATIONS FOR PROCEDURE: Patient is a 78-year-old, severely demented male who had an unwitnessed f all at his [facility], was unable to ambulate, presented in the emergency department and was diagnosed with the periprosthetic fracture. Recommended operative treatment of the right hip. All the risks, benefits, pros, cons of posterior approach proximal femur ORIF and revision total hip arth roplasty were discussed with the family and the power of workers compensation attorney. They understood, agreed, and cons ent was signed prior to the procedure. DRAINS: None. COMPLICATIONS: None. IMPLANTS: Include a Bhaskar spiritism modular hip stem, 195 mm stem length and 17 mm distal diamet er, a 21 mm cone proximal body with a +0 height, and LFIT V40 femoral head size 44 mm with a +4 mm of fset. /[id number]/MODL
--- NOTE | 2018-12-21 11:52 | GDS ---
[f rep st] DISCHARGE SUMMARY DISCHARGE DIAGNOSES: 1. Right acute periprosthetic hip fracture status post open reduction internal fixation and revision . 2. Acute blood loss anemia. 3. Vasovagal event. 4. Leukocytosis. 5. Frequent falls. 6. Advanced dementia. 7. Hyperglycemia. CONSULTATION: Jane Hanna MD. HISTORY OF PRESENT ILLNESS: Briefly, the patient is a 78-year-old male with significant dementia. Victorino antonio resides in a memory care unit and had an unwitnessed fall with pain to his right hip. He has been falling more. He was brought to the emergency room for further evaluation and was noted to have a ri ght acute periprosthetic hip fracture. He had surgery with Dr. Franky Beauchamp. He did very well with hakeem marinelli. His main complication during his hospital stay was some anemia. He had a vasovagal event. After transfused this is much improved. He has received 2 units and will have his labs monitored at the rehabilitation facility. HOSPITAL COURSE: 1. Right acute periprosthetic hip fracture. He is status post ORIF and revision. He has been place d on scheduled Tylenol for pain as well as scheduled oxycodone, because he is unable to tell us if he is having pain due to the dementia. 2. Anemia, much improved. He received 2 units of packed red blood cells. 3. Vasovagal event, none further. 4. Leukocytosis, stress induced. 5. Frequent falls. Will get PT and OT. 6. Dementia. This is quite advanced, but he is calm and cooperative. 7. Hyperglycemia stress-induced. DISCHARGE CONDITION: Stable. Blood pressure is 129/79, heart rate is 67, respiratory rate of 18, O2 sats on 2 L are 98%, temperature is 36.6 Celsius. DISCHARGE MEDICATIONS: Please see the EMR. DISCHARGE INSTRUCTIONS: 1. 50% partial weightbearing to right lower extremity. 2. Continue Lovenox until he is more mobile at least 3 more weeks. 3. Posterior hip precautions. 4. Follow up with Dr. Beauchamp in 2 weeks. Greater than 30 minutes discharging and coordinating the patient's care. /[id number]/MODL
--- NOTE | 2018-12-21 15:08 | ASDISCHSUM ---
Discharge Information Plan Status:SNF Medically Cleared to Leave: Discharge Date:12/21/2018 01:09 PM CM D/C Disposition: ADT D/C Disposition:Jail Facility Projected Discharge Date:12/19/2018 11:00 AM Transportation at D/C: Discharge Delay Reason: Follow-Up Date:12/19/2018 11:00 AM Discharge Slot: Final Diagnosis: Placement Information Referral Type:*Correction/SNF Referral ID:[id number] Provider Name:[facility] Address 1:[address] Address 2: City:[place] Selection Factors: State:[place] Patient Contact Information Contact Name:BRONSON Relationship: Address:[address] Work Phone: [facility] Phone: State/Zip Code:[place] [address] Email: Financial Information Financial Class:Medicare Primary Plan Desc:MEDICARE INPATIENT Primary Plan Number:[id number] Secondary Plan Desc:[employer] [facility] Secondary Plan Number:[id number] Assessment Information LACE LACE Length of stay for Answers: 7-13 days current admission Acuity / Level of Answers: Yes Care: Did the patient have an inpatient admission? Comorbidities - select Answers: Dementia all that apply Other Notes: Diverticulitis # of Emergency department Answers: 1-2 visits in the last 6 months Social determinants Answers: Mental health diagnosis (anxiety, depression, pers onality disorders, etc.) Score: 16 Date Signed: 12/21/2018 10:43 AM Electronically Signed By:FAHAD Cool [facility] CM Progress Note CM Note CM Note Notes: Pt lives at the memory care unit at [facility]. He was admitted for a hip fracture after an unwitnessed fall. He is supported by his and dtr. Pt will go to OR today, therapy evals pending, RANDELL w/f. DC Plan: TBD Date Signed: 12/16/2018 12:41 PM Electronically Signed By:Francesca Taylor RN [facility] CM Progress Note CM Note CM Note Notes: Reviewed chart, spoke with Merary Taylor NP regarding discharge plan of care, pt's progress. Per Merary, pt will require SNF rehab upon discharge. Call placed to [facility] (); spoke with Matthew, update provided. Per Matthew, will run insurance benefits to begin authorization process. Therapy evals and progress notes faxed via [employer]; confirmed receipt with Matthew. CM will continue to follow. Discharge Plan: [facility] Date Signed: 12/17/2018 02:20 PM Electronically Signed By:Abiola Srinivasan RN [facility] CM Progress Note CM Note CM Note Notes: Pt has original/standard Medicare so no insurance auth is needed for pt to return to [facility] with SNF benefit. Pt PASRR completed, non-triggering. Pt dghtr/MDPOA was able to assist with answering the PASRR medication question. D/c plan of care: [facility] Date Signed: 12/19/2018 03:21 PM Electronically Signed By:FAHAD Cool [facility] CM Progress Note CM Note CM Note Notes: Pt medically stable for d/c to [facility] under Medicare SNF benefit. Orders sent in [employer]. STEPHANIE Ríos to call report. Ginny with scheduled stretcher transport for 1330. Pt malihar Hina updated and she will call pt Ann Marie. Date Signed: 12/21/2018 10:45 AM Electronically Signed By:FAHAD Cool Intervention Information
== END 2018-12-21 13:09 | DRG 467 ==
LOC: EDUNIT# → F3N 17:58
PROVIDERS: ADMIT Internal Medicine; ATTEND Internal Medicine
PROC: 0QS804Z Reposition Right Femoral Shaft with Internal Fixation Device, Open Approach (ICD-10-PCS; principal; 2018-12-15)
PROC: 0SP90JZ Removal of Synthetic Substitute from Right Hip Joint, Open Approach (ICD-10-PCS; principal; 2018-12-15)
PROC: 0SRR0JZ Replacement of Right Hip Joint, Femoral Surface with Synthetic Substitute, Open Approach (ICD-10-PCS; principal; 2018-12-15)
PROC: 30233N1 Transfusion of Nonautologous Red Blood Cells into Peripheral Vein, Percutaneous Approach (ICD-10-PCS; 2018-12-18)
DX: S72.141A Displaced intertrochanteric fracture of right femur, initial encounter for closed fracture (principal); M97.01XA Periprosthetic fracture around internal prosthetic right hip joint, initial encounter; D62 Acute posthemorrhagic anemia; W19.XXXA Unspecified fall, initial encounter; Y92.129 Unspecified place in nursing home as the place of occurrence of the external cause; R55 Syncope and collapse; E86.9 Volume depletion, unspecified; F03.90 Unspecified dementia, unspecified severity, without behavioral disturbance, psychotic disturbance, mood disturbance, and anxiety; R73.9 Hyperglycemia, unspecified; R29.6 Repeated falls; Z66 Do not resuscitate
CPT/HCPCS: 97162-GP; 97166-GO; 97530-GO; 97530-GP; 97535-GO; C1713; G0515-GO; J0171; J0690; J1100; J1170; J1650; J1885; J2370; J2405; J2704; J2795; J3010; P9016